=== PATIENT | female | born 1965 ===

== ENCOUNTER 2016-06-09 22:00 | Emergency (ER) | payer MEDICAID ==
[2016-06-09 22:00] VITALS: BMI 26.6
[2016-06-09 22:08] VITALS: BP 142/94; PULSE 77; RESP 18; TEMP 97.5; O2SAT 100
--- NOTE | 2016-06-09 23:08 | C.PDOC ---
History Of Present Illness 50 y/o female presents to ED with complaint of upper back pain radiating to her neck area. Patient was seen in the ER for similar complaints 1 month ago. She notes that she had a massage and was seen by chiropractor but states pain worsened after massage. She denies trauma, fall, weakness, numbness, or other associated symptoms. Time Seen by Provider: 06/09/16 22:24 Chief Complaint (Nursing): Back Pain History Per: Patient History/Exam Limitations: no limitations Onset/Duration Of Symptoms: Days Current Symptoms Are (Timing): Still Present Quality Of Discomfort: "Pain" Associated Symptoms: denies: Incontinence, New Weakness, New Numbness Recent travel outside of the [place]: No Past Medical History Reviewed: Historical Data, Nursing Documentation, Vital Signs Vital Signs: Last Vital Signs Temp 97.5 F L 06/09/16 22:03 Pulse 77 06/09/16 22:03 Resp 18 06/09/16 22:03 BP 142/94 H 06/09/16 22:03 Pulse Ox 100 06/10/16 00:08 - Medical History PMH: Anxiety, Gastritis, Gall Bladder Disease, HTN, Hypothyroidism Surgical History: Cholecystectomy (2 years ago) - [facility] Procedures LAPAROSCOPIC CHOLECYSTECTOMY (03/20/14) Family History: States: Unknown Family Hx - Social History Hx Tobacco Use: No Hx Alcohol Use: Yes Hx Substance Use: No - Immunization History Hx Tetanus Toxoid Vaccination: No Hx Influenza Vaccination: Yes Hx Pneumococcal Vaccination: No Review Of Systems Except As Marked, All Systems Reviewed And Found Negative. Constitutional: Negative for: Fever, Chills Gastrointestinal: Negative for: Nausea, Vomiting Musculoskeletal: Positive for: Neck Pain, Back Pain Skin: Negative for: Rash Neurological: Negative for: Weakness, Numbness Physical Exam - Physical Exam Appears: Non-toxic, No Acute Distress Skin: Normal Color, Warm, Dry Head: Atraumatic, Normacephalic Neck: No Midline Cervical Tenderness, Paracervical Tenderness (mild, bilateral) , No Step Off Deformity, Supple Chest: Symmetrical Cardiovascular: Rhythm Regular Respiratory: Normal Breath Sounds, No Rales, No Rhonchi, No Wheezing Gastrointestinal/Abdominal: Soft, No Tenderness Back: No Vertebral Tenderness, Paraspinal Tenderness (bilateral scapular pain) Extremity: Normal ROM, Capillary Refill (< 2 sec.) Neurological/Psych: Oriented x3, Normal Speech, Normal Cognition, Normal Motor, Normal Sensation ED Course And Treatment O2 Sat by Pulse Oximetry: 100 (RA) Pulse Ox Interpretation: Normal Progress Note: Treated with Toradol and Valium. On reassessment, patient is in no acute distress, with improvement of back pain. Patient has no bony tenderness , extremity numbness or weakness, or abdominal pain. Patient is ambulatory in the emergency department without difficulty. Patient was advised to follow up with PMD/clinic in 1-2 days. Disposition Counseled Patient/Family Regarding: Diagnosis, Need For Followup, Rx Given - Disposition Referrals: Ramos Koo MD [Family Provider] - Disposition: HOME/ ROUTINE Disposition Time: 23:06 Condition: GOOD Additional Instructions: Take meds as prescribed Follow up with PMD Return to ER if worse Prescriptions: Cyclobenzaprine [Cyclobenzaprine HCl] 10 mg PO BID #14 tab Naproxen [Naprosyn] 1 tab PO BID PRN #25 tab PRN Reason: Pain Instructions: Musculoskeletal Pain (ED) - Clinical Impression Clinical Impression: Musculoskeletal back pain, Cervical radiculitis - PA / PIPELINE DISPATCH OPERATOR / Resident Statement MD/DO has reviewed & agrees with the documentation as recorded. - Scribe Statement The provider has reviewed the documentation as recorded by the Mikaela Lewis All medical record entries made by the Mikaela were at my direction and personally dictated by me. I have reviewed the chart and agree that the record accurately reflects my personal performance of the history, physical exam, medical decision making, and the department course for this patient. I have also personally directed, reviewed, and agree with the discharge instructions and disposition.
== END 2016-06-09 23:15 | disposition home or self-care (01) ==
LOC: C.ER 22:00
DX: M54.12 Radiculopathy, cervical region (principal); M54.89 Other dorsalgia
CPT/HCPCS: 96372; 99283; J1885

== ENCOUNTER 2016-11-08 10:16 | Emergency (ER) | payer MEDICAID ==
[2016-11-08 10:17] VITALS: BMI 26.6
[2016-11-08 10:21] VITALS: RESP 18; TEMP 98.3
--- NOTE | 2016-11-08 10:59 | C.PDOC ---
History Of Present Illness 11/08/2016 Elaine Garcia is a 51 y/o female, whose past medical history includes HTN and hyperthyroidism, presents to the ED complaining of a sore throat for the past 4 days. Patient reports she has large amount of green mucous discharge, cough, and shortness of breath. Patient notes taking medication for her symptoms but there is no significant relief. Patient denies chest pain, headache, fever, chills, nausea, vomiting, diarrhea, abdominal pain, dizziness or other complaints. Time Seen by Provider: 11/08/16 10:25 Chief Complaint (Nursing): ENT Problem History Per: Patient History/Exam Limitations: None Onset/Duration Of Symptoms: Days (4 days) Current Symptoms Are (Timing): Still Present Quality (Mouth/Throat): Swelling, Other (green mucous discharge ) Symptoms Have Been: Continuous Past Medical History Reviewed: Historical Data, Nursing Documentation, Vital Signs Vital Signs: Last Vital Signs Temp 98.3 F 11/08/16 10:21 Pulse 77 11/08/16 10:21 Resp 18 11/08/16 10:21 BP 116/83 11/08/16 10:21 Pulse Ox 100 11/08/16 11:05 - Medical History PMH: Anxiety, Gastritis, Gall Bladder Disease, HTN, Hypothyroidism Denies: HIV, Chronic Kidney Disease Surgical History: Cholecystectomy (2 years ago) - [facility] Procedures LAPAROSCOPIC CHOLECYSTECTOMY (03/20/14) Family History: States: Unknown Family Hx Denies: [place], CAD - Social History Hx Tobacco Use: No Hx Alcohol Use: Yes Hx Substance Use: No - Immunization History Hx Tetanus Toxoid Vaccination: No Hx Influenza Vaccination: Yes Hx Pneumococcal Vaccination: No Review Of Systems Constitutional: Negative for: Fever ENT: Positive for: Throat Pain, Throat Swelling Cardiovascular: Negative for: Chest Pain Respiratory: Positive for: Cough, Shortness of Breath, Sputum Gastrointestinal: Negative for: Vomiting, Abdominal Pain Genitourinary: Negative for: Dysuria, Frequency Neurological: Negative for: Headache Physical Exam - Physical Exam Additional Physical Exam Comments: 11/08/2016 Constitutional: No acute distress. Head: Normocephalic. Atraumatic. Eyes: PERRL. ENT: Moist mucous membranes. No erythema. Neck: Supple. Cardiovascular: Regular rate. Radial pulses 2+ bilaterally. Chest: No tenderness. Respiratory: Clear to auscultation bilaterally. GI: Soft. Nontender. Nondistended. Back: No CVA tenderness. Musculoskeletal: No tenderness or swelling of extremities. Skin: No rash. Neurologic: Alert, no focal deficit. ED Course And Treatment O2 Sat by Pulse Oximetry: 100 (air room) Pulse Ox Interpretation: Normal Medical Decision Making Medical Decision Makin11/08/2016 Impression: 51 y/o female with sore throat for the past 4 days. Plan: -- Chest X-ray -- Reassess and disposition CXR shows no infiltrate, consolidation, pneumothorax, pleural effusion. Patient has PMD, instructed to follow up with them, return to ED for fever, dyspnea, inability to take PO. Disposition - Disposition Referrals: Ramos Koo MD [Staff Provider] - Disposition: HOME/ ROUTINE Disposition Time: 11:37 Condition: STABLE Additional Instructions: Your chest X-ray is normal and does not show any pneumonia. Please follow up with your primary doctor. Continue to take your over the counter medications and you may take the Magic Mouthwash with you to gargle and spit out as needed. Instructions: Upper Respiratory Infection (ED) Forms: [facility] (Arabic) - Clinical Impression Clinical Impression: URI (upper respiratory infection) - Scribe Statement The provider has reviewed the documentation as recorded by the Scribe 11/08/2016 Scribe Attestation: Meme Garrido MD Scribe Attestation: All medical record entries made by the Scribe were at my direction and personally dictated by me. I have reviewed the chart and agree that the record accurately reflects my personal performance of the history, physical exam, medical decision making, and the department course for this patient. I have also personally directed, reviewed, and agree with the discharge instructions and disposition.
[2016-11-08] MEDS ORDERED: Mag&Al/Simet/Diphen/Lido 237 ML KIT PO STA (11:25)
[2016-11-08 12:05] VITALS: BP 124/72; PULSE 89; O2SAT 98
--- NOTE | 2016-11-08 12:15 | RAD ---
HISTORY: cough COMPARISON: Chest radiographs 06/16/2015 TECHNIQUE: Chest PA and lateral FINDINGS: LUNGS: No active pulmonary disease. PLEURA: No significant pleural effusion identified. No pneumothorax apparent. CARDIOVASCULAR: Normal. OSSEOUS STRUCTURES: No significant abnormalities. VISUALIZED UPPER ABDOMEN: Normal. OTHER FINDINGS: None. IMPRESSION: No acute cardiopulmonary disease or significant interval change.
== END 2016-11-08 12:05 | disposition home or self-care (01) ==
LOC: C.ER 10:16
DX: J06.9 Acute upper respiratory infection, unspecified (principal)

== ENCOUNTER 2016-11-10 23:35 | Emergency (ER) | payer MEDICAID ==
[2016-11-10 23:36] VITALS: BMI 26.6
[2016-11-10 23:52] VITALS: BP 110/75; PULSE 80; RESP 20; TEMP 98.3; O2SAT 99
[2016-11-11] MEDS ORDERED: Promethazine/Cod 6.25mg-10mg/5ml Syr UD PO STA (00:19)
[2016-11-11] MEDS ORDERED: Promethazine/Cod 6.25mg-10mg/5ml Syr UD ONE (00:22)
[2016-11-11] MEDS ORDERED: Aluminum Hydroxide/Magnesium Hydroxide Susp (30 mL) PO STA (00:41)
[2016-11-11] MEDS ORDERED: Aluminum Hydroxide/Magnesium Hydroxide Susp (30 mL) ONE (00:43)
--- NOTE | 2016-11-11 01:59 | C.PDOC ---
History Of Present Illness 51 y/o female c/o cough with green sputum and SOB x1 week. Patient reports no improvements with OTC meds. Patient was here in the ER a few days prior for similar symptoms with a normal CXR. Patient states that the symptoms has persisted which prompted the visit today. Denies fever, chills, palpitations, diaphoresis, light headedness, recent travel or sick contact. Time Seen by Provider: 11/11/16 00:04 Chief Complaint (Nursing): Cough, Cold, Congestion History Per: Patient History/Exam Limitations: no limitations Onset/Duration Of Symptoms: Days (1 week) Current Symptoms Are (Timing): Still Present Sick Contacts (Context): None Associated Symptoms: denies: Fever, Chills Ear Symptoms: Bilateral: None Severity: Mild Recent travel outside of the [place]: No Additional History Per: Patient Past Medical History Reviewed: Historical Data, Nursing Documentation, Vital Signs Vital Signs: Last Vital Signs Temp 98.3 F 11/10/16 23:47 Pulse 80 11/10/16 23:47 Resp 20 11/10/16 23:47 BP 110/75 11/10/16 23:47 Pulse Ox 99 11/11/16 02:05 - Medical History PMH: Anxiety, Gastritis, Gall Bladder Disease, HTN, Hypothyroidism Denies: HIV, Chronic Kidney Disease Surgical History: Cholecystectomy (2 years ago) - [facility] Procedures LAPAROSCOPIC CHOLECYSTECTOMY (03/20/14) Family History: States: Unknown Family Hx Denies: [place], CAD - Social History Hx Tobacco Use: No Hx Alcohol Use: Yes Hx Substance Use: No - Immunization History Hx Tetanus Toxoid Vaccination: No Hx Influenza Vaccination: Yes Hx Pneumococcal Vaccination: No Review Of Systems Except As Marked, All Systems Reviewed And Found Negative. Constitutional: Negative for: Fever, Chills, Sweats ENT: Negative for: Ear Pain Cardiovascular: Negative for: Palpitations, Light Headedness Respiratory: Positive for: Cough (With green sputum), Shortness of Breath Physical Exam - Physical Exam Appears: Non-toxic, No Acute Distress Skin: Warm, Dry Head: Atraumatic, Normacephalic Eye(s): bilateral: Normal Inspection Ear(s): Bilateral: Normal Oral Mucosa: Moist Throat: Normal, No Erythema, No Exudate Chest: Symmetrical, No Tenderness Cardiovascular: Rhythm Regular Respiratory: Normal Breath Sounds, No Wheezing Gastrointestinal/Abdominal: Soft, No Tenderness Neurological/Psych: Oriented x3, Normal Speech, Normal Cognition ED Course And Treatment O2 Sat by Pulse Oximetry: 99 (RA) Pulse Ox Interpretation: Normal Progress Note: Impression: 51 y/o female c/o cough with green sputum and SOB x1 week. Plans:Phenergan with Codeine, Prednisone. Patient is in no acute distress and is improving with the cough and SOB. Patient is currenlty afebrile and was instructed to take meds and to follow up with PMD for further evaluation and to return if symptoms worsens. Disposition - Disposition Referrals: Ramos Koo MD [Staff Provider] - Disposition: HOME/ ROUTINE Disposition Time: 12:37 Condition: STABLE Prescriptions: Azithromycin [Zithromax] 250 mg PO DAILY #6 tab Benzonatate [Tessalon Perles] 100 mg PO TID #20 sgl Cetirizine HCl [Zyrtec] 10 mg PO DAILY #20 capsule predniSONE [Prednisone] 40 mg PO DAILY #10 tab Instructions: Acute Bronchitis (ED) Forms: [employer] (Russian) - Clinical Impression Clinical Impression: Bronchitis - Scribe Statement The provider has reviewed the documentation as recorded by the Scribe Vishnu mckeon All medical record entries made by the Scribe were at my direction and personally dictated by me. I have reviewed the chart and agree that the record accurately reflects my personal performance of the history, physical exam, medical decision making, and the department course for this patient. I have also personally directed, reviewed, and agree with the discharge instructions and disposition.
== END 2016-11-11 00:48 | disposition home or self-care (01) ==
LOC: C.ER 23:35 → SUPCPDRO 23:35 → C.ER 11-11 00:48
DX: J40 Bronchitis, not specified as acute or chronic (principal)

== ENCOUNTER 2017-04-18 13:48 | Emergency (ER) | payer MEDICAID ==
[2017-04-18 13:57] VITALS: BMI 28.0
[2017-04-18 13:58] VITALS: BP 125/82; PULSE 110; RESP 20; TEMP 98.8; O2SAT 99
--- NOTE | 2017-04-18 16:12 | C.PDOC ---
History Of Present Illness 51 year old female presents to the emergency department complaining of body aches, dry cough, and a subjective fever since yesterday. Denies any vomiting, chest pain, or shortness of breath. Patient is tolerating per os. Has not received the flu shot and has positive sick contacts. PMD: Dr. Praveen Koo Chief Complaint (Nursing): Flu-like Symptoms History Per: Patient History/Exam Limitations: no limitations Onset/Duration Of Symptoms: Days (x2) Current Symptoms Are (Timing): Still Present Past Medical History Reviewed: Historical Data, Nursing Documentation, Vital Signs Vital Signs: Last Vital Signs Temp 98.8 F 04/18/17 13:57 Pulse 110 H 04/18/17 13:57 Resp 20 04/18/17 13:57 BP 125/82 04/18/17 13:57 Pulse Ox 99 04/18/17 16:13 - Medical History PMH: Anxiety, Gastritis, Gall Bladder Disease, HTN, Hypothyroidism Denies: HIV, Chronic Kidney Disease Surgical History: Cholecystectomy - [facility] Procedures LAPAROSCOPIC CHOLECYSTECTOMY (03/20/14) Family History: States: Unknown Family Hx Denies: [place], CAD - Social History Hx Tobacco Use: No Hx Alcohol Use: Yes Hx Substance Use: No - Immunization History Hx Tetanus Toxoid Vaccination: No Hx Influenza Vaccination: No Hx Pneumococcal Vaccination: No Review Of Systems Except As Marked, All Systems Reviewed And Found Negative. Constitutional: Positive for: Fever, Other (Body Aches) Cardiovascular: Negative for: Chest Pain Respiratory: Positive for: Cough. Negative for: Shortness of Breath, Sputum Gastrointestinal: Negative for: Vomiting, Diarrhea Physical Exam - Physical Exam Appears: Well, Non-toxic, No Acute Distress Skin: Normal Color, Warm, Dry Head: Atraumatic, Normacephalic Eye(s): bilateral: Normal Inspection, PERRL, EOMI Nose: Normal Throat: Normal Neck: Normal Cardiovascular: Rhythm Regular, No Murmur Respiratory: Normal Breath Sounds, No Accessory Muscle Use, No Wheezing Gastrointestinal/Abdominal: Normal Exam, Soft, No Tenderness, No Distention Neurological/Psych: Oriented x3 ED Course And Treatment O2 Sat by Pulse Oximetry: 99 (RA) Pulse Ox Interpretation: Normal Medical Decision Making Medical Decision Making: Discharge Time: 14:47 Upon reevaluation, patient is feeling better and was discharged home. Patient is instructed to follow up with primary care physician if symptoms worsen Disposition - Disposition Referrals: Latonya Ndiaye Dianamaikol, [Non-Staff] - Disposition: HOME/ ROUTINE Disposition Time: 14:20 Condition: GOOD Additional Instructions: Thank you for letting us take care of you today. The emergency medical care you received today was directed at your acute symptoms. If you were prescribed any medication, please fill it and take as directed. It may take several days for your symptoms to resolve. Return to the Emergency Department if your symptoms worsen, do not improve, or if you have any other problems. Please contact your doctor or call one of the physicians/clinics you have been referred to that are listed on the Patient Visit Information form that is included in your discharge packet. Bring any paperwork you were given at discharge with you along with any medications you are taking to your follow up visit. Our treatment cannot replace ongoing medical care by a primary care provider (PCP) outside of the emergency department. Thank you for allowing the [facility] team to be part of your care today. Follow up with your doctor in 2-3 days for re-evaluation and further management. Prescriptions: Oseltamivir Phosphate [Tamiflu] 75 mg PO BID #10 capsule Instructions: Viral Syndrome (ED) Forms: [facility] ? [employer] (Chinese) - Clinical Impression Clinical Impression: Influenza-like illness - Scribe Statement The provider has reviewed the documentation as recorded by the Scribe Vandana Sales All medical record entries made by the Scribe were at my direction and personally dictated by me. I have reviewed the chart and agree that the record accurately reflects my personal performance of the history, physical exam, medical decision making, and the department course for this patient. I have also personally directed, reviewed, and agree with the discharge instructions and disposition.
== END 2017-04-18 14:47 | disposition home or self-care (01) ==
LOC: C.ER 13:48
DX: J11.1 Influenza due to unidentified influenza virus with other respiratory manifestations (principal)

== ENCOUNTER 2017-09-17 08:35 | Emergency (ER) | payer MEDICAID ==
[2017-09-17 08:40] VITALS: BMI 29.2
[2017-09-17 08:49] VITALS: BP 115/81; PULSE 72; RESP 20; TEMP 97.7
--- NOTE | 2017-09-17 09:01 | C.PDOC ---
History Of Present Illness 51 year old female presents to ED with complaints of 3 day history of left sided neck and upper back pain, radiates to shoulder. As per patient pain is aching and worsened with movement or strenuous use. Patient has not taken any medications for pain and denies chest pain, SOB, numbness or weakness. Time Seen by Provider: 09/17/17 08:47 Chief Complaint (Nursing): Back Pain History Per: Patient History/Exam Limitations: no limitations Onset/Duration Of Symptoms: Days Current Symptoms Are (Timing): Still Present Quality Of Discomfort: "Pain" Past Medical History Reviewed: Historical Data, Nursing Documentation, Vital Signs Vital Signs: Last Vital Signs Temp 97.7 F 09/17/17 08:46 Pulse 72 09/17/17 08:46 Resp 20 09/17/17 08:46 BP 115/81 09/17/17 08:46 Pulse Ox 98 09/17/17 09:39 - Medical History PMH: Anxiety, Gastritis, Gall Bladder Disease, HTN, Hypothyroidism Surgical History: Cholecystectomy - [facility] Procedures LAPAROSCOPIC CHOLECYSTECTOMY (03/20/14) Family History: States: No Known Family Hx - Social History Hx Tobacco Use: No Hx Alcohol Use: Yes Hx Substance Use: No - Immunization History Hx Tetanus Toxoid Vaccination: No Hx Influenza Vaccination: No Hx Pneumococcal Vaccination: No Review Of Systems Constitutional: Negative for: Fever, Chills Gastrointestinal: Negative for: Nausea, Vomiting, Abdominal Pain Genitourinary: Negative for: Dysuria, Hematuria Musculoskeletal: Positive for: Back Pain Skin: Negative for: Rash Neurological: Negative for: Weakness, Numbness Physical Exam - Physical Exam Appears: Non-toxic, No Acute Distress Skin: Warm, Dry, No Rash Head: Atraumatic, Normacephalic Eye(s): bilateral: Normal Inspection Oral Mucosa: Moist Neck: Normal ROM, No Midline Cervical Tenderness, Paracervical Tenderness, Step Off Deformity Cardiovascular: Rhythm Regular Respiratory: Normal Breath Sounds, No Rales, No Rhonchi, No Wheezing Gastrointestinal/Abdominal: Soft, No Tenderness, No Guarding, No Rebound Back: No CVA Tenderness, No Paraspinal Tenderness, Other (Trapezius muscle tenderness. Left SCM muscle tenderness) Extremity: Bilateral: Atraumatic, Normal ROM Pulses: Left Radial: Normal Neurological/Psych: Oriented x3, Normal Speech, Normal Motor, Normal Sensation Gait: Steady ED Course And Treatment O2 Sat by Pulse Oximetry: 98 (RA) Pulse Ox Interpretation: Normal Medical Decision Making Medical Decision Making: Impression: Muscle pain Plan: * Motrin * Flexeril Re-Eval: Patient resting comfortably, no longer having neck pain. She has no fever, no bony tenderness, no numbness, no weakness, no stiffness. Patient is ambulatory in the emergency department with no discomfort. Patient advised to follow up with their physician in 1-2 days. Disposition Counseled Patient/Family Regarding: Diagnosis, Need For Followup, Rx Given - Disposition Referrals: Ramos Koo MD [Staff Provider] - Disposition: HOME/ ROUTINE Disposition Time: 09:44 Condition: IMPROVED Additional Instructions: Please apply heat to area of pain Take Tylenol or Ibuprofen as needed for pain Take Flexeril as needed for muscle pain, may cause drowsiness Follow up with your primary medical doctor or clinic in 2-5 days for further evaluation. Return to the emergency department at any time if symptoms persist or worsen. Prescriptions: Cyclobenzaprine [Cyclobenzaprine HCl] 10 mg PO TID #21 tab Ibuprofen [Motrin] 600 mg PO Q8 #30 tab Instructions: Cervical Muscle Strain (DC) Forms: [employer] (Marshallese) - POA Present On Arrival: None - Clinical Impression Clinical Impression: Neck muscle strain - PA / SMELTER LINER / Resident Statement MD/DO has reviewed & agrees with the documentation as recorded. - Scribe Statement The provider has reviewed the documentation as recorded by the Alissaibjenaro Gutierrez All medical record entries made by the Mikaela were at my direction and personally dictated by me. I have reviewed the chart and agree that the record accurately reflects my personal performance of the history, physical exam, medical decision making, and the department course for this patient. I have also personally directed, reviewed, and agree with the discharge instructions and disposition.
[2017-09-17 10:07] VITALS: O2SAT 98
== END 2017-09-17 09:48 | disposition home or self-care (01) ==
LOC: C.ER 08:35
DX: S16.1XXA Strain of muscle, fascia and tendon at neck level, initial encounter (principal); X58.XXXA Exposure to other specified factors, initial encounter

== ENCOUNTER 2017-10-23 19:52 | Emergency (ER) | payer MEDICAID ==
[2017-10-23 19:53] VITALS: BMI 29.2
[2017-10-23 20:01] VITALS: BP 118/82; PULSE 80; RESP 20; TEMP 97.6; O2SAT 100
--- NOTE | 2017-10-23 20:13 | C.PDOC ---
History Of Present Illness 51 y/o female with htn and thyroid problems presents with stye on left upper lid for several months. pt seen by eye doctor on Thur and recommended to continue with warm compresses with f/u in 2-3 weeks. pt sts stye coming to a head. not taking anything for pain. no fever. Time Seen by Provider: 10/23/17 20:05 Chief Complaint (Nursing): Eye Problem History/Exam Limitations: no limitations Onset/Duration Of Symptoms: Days Current Symptoms Are (Timing): Worse Injury To Eye?: No Severity: Moderate Quality: "Pain" Associated Symptoms: Swelling (left upper lid). denies: Decreased Vision, FB Sensation Past Medical History Reviewed: Historical Data, Nursing Documentation, Vital Signs Vital Signs: Last Vital Signs Temp 97.6 F 10/23/17 19:58 Pulse 80 10/23/17 19:58 Resp 20 10/23/17 19:58 BP 118/82 10/23/17 19:58 Pulse Ox 100 10/23/17 20:23 - Medical History PMH: Anxiety, Gastritis, Gall Bladder Disease, HTN, Hypothyroidism Denies: HIV, Chronic Kidney Disease Surgical History: Cholecystectomy - [facility] Procedures LAPAROSCOPIC CHOLECYSTECTOMY (03/20/14) Family History: States: Unknown Family Hx Denies: [place], CAD - Social History Hx Tobacco Use: No Hx Alcohol Use: Yes Hx Substance Use: No - Immunization History Hx Tetanus Toxoid Vaccination: No Hx Influenza Vaccination: No Hx Pneumococcal Vaccination: No Review Of Systems Constitutional: Negative for: Fever Eyes: Positive for: Pain, Eyelid Inflammation, Redness. Negative for: Vision Change Physical Exam - Physical Exam Appears: Non-toxic, Other (uncomfortable) Skin: Warm, Dry Head: Atraumatic, Normacephalic Eye(s): bilateral: PERRL, EOMI, right: Normal Inspection, left: Eyelid Inflammation (mild erythema to left upper lid with stye with head visible at base of lid/lash. ) Neurological/Psych: Oriented x3, Normal Speech, Normal Cognition ED Course And Treatment O2 Sat by Pulse Oximetry: 100 Medical Decision Making Medical Decision Making: pt with stye coming to a head; advised to continue warm compresses, tylenol or motrin for pain and antibiotics f/u eye doctor as planned. . addendum; pt shows me at end of visit a tube of tobradex given to her by eye doctor at visit 2 days ago; pt advised to continue use of this medication. Disposition Counseled Patient/Family Regarding: Diagnosis, Need For Followup, Rx Given - Disposition Disposition: HOME/ ROUTINE Disposition Time: 20:16 Condition: GOOD Additional Instructions: Please continue with warm compresses to left upper lid. Take antibiotics as prescribed. Tylenol or Motrin for pain. Follow up with your eye doctor as scheduled. Return to ER for any worsening symptoms. Prescriptions: Cephalexin [cephalexin] 500 mg PO Q6 #20 cap Instructions: Raffi (Hordeolum) Forms: [facility] (Hungarian), General Discharge Instructions - Clinical Impression Clinical Impression: Hordeolum externum left upper eyelid
== END 2017-10-23 20:28 | disposition home or self-care (01) ==
LOC: C.ER 19:52
DX: H00.014 Hordeolum externum left upper eyelid (principal); I10 Essential (primary) hypertension; E03.9 Hypothyroidism, unspecified

== ENCOUNTER 2018-01-10 20:18 | Emergency (ER) | payer MEDICAID ==
[2018-01-10 20:18] VITALS: BMI 29.2
[2018-01-10 20:33] VITALS: O2SAT 100
--- NOTE | 2018-01-10 20:36 | C.PDOC ---
History Of Present Illness Patient presents to the ER after having an episode of dizziness associated with some palpitations [employer]. Patient states she was working with a customer at work when the symptoms began. She reports feeling anxious at this time. Denies chest pain, vision change, or tinnitus. Time Seen by Provider: 01/10/18 20:35 Chief Complaint (Nursing): Dizziness/Lightheaded History Per: Patient History/Exam Limitations: no limitations Onset/Duration Of Symptoms: Hrs Current Symptoms Are (Timing): Still Present Severity: Moderate Pain Scale Rating Of: 4 Recent travel outside of the [place]: No Past Medical History Reviewed: Historical Data, Nursing Documentation, Vital Signs Vital Signs: Last Vital Signs Temp 97.8 F 01/10/18 20:28 Pulse 85 01/10/18 20:28 Resp 15 01/10/18 20:28 BP 147/71 01/10/18 20:28 Pulse Ox 100 01/10/18 20:28 - Medical History PMH: Anxiety, Gastritis, Gall Bladder Disease, HTN, Hypothyroidism Denies: HIV, Chronic Kidney Disease Surgical History: Cholecystectomy - [facility] Procedures LAPAROSCOPIC CHOLECYSTECTOMY (03/20/14) Family History: States: No Known Family Hx - Social History Hx Tobacco Use: No Hx Alcohol Use: No Hx Substance Use: No - Immunization History Hx Tetanus Toxoid Vaccination: No Hx Influenza Vaccination: No Hx Pneumococcal Vaccination: No Review Of Systems Constitutional: Negative for: Fever, Chills Eyes: Negative for: Vision Change ENT: Negative for: Other (Tinnitus) Cardiovascular: Positive for: Palpitations. Negative for: Chest Pain Gastrointestinal: Negative for: Nausea, Vomiting Neurological: Positive for: Dizziness Psych: Positive for: Anxiety Physical Exam - Physical Exam Appears: Non-toxic Skin: Warm, Dry Head: Normacephalic Eye(s): bilateral: Normal Inspection, PERRL, EOMI Oral Mucosa: Moist Neck: Trachea Midline, Supple Chest: Symmetrical, No Tenderness Cardiovascular: Rhythm Regular Respiratory: No Rales, No Rhonchi, No Wheezing Gastrointestinal/Abdominal: Soft, No Tenderness Neurological/Psych: Oriented x3 ED Course And Treatment - Laboratory Results Result Diagrams: 01/10/18 20:48 01/10/18 20:48 ECG: Interpreted By Me, Viewed By Me ECG Rhythm: Sinus Rhythm (83), Nonspecific Changes O2 Sat by Pulse Oximetry: 100 Pulse Ox Interpretation: Normal - Radiology CXR: Interpreted by Me, Viewed By Me CXR Interpretation: No: Infiltrates, Fracture, Pnemothorax Progress Note: EKG, blood work, CXR, and urinalysis ordered. Reevaluation Time: 22:08 Reassessment Condition: Improved Disposition Counseled Patient/Family Regarding: Studies Performed, Diagnosis, Need For Followup, Rx Given - Disposition Referrals: Ramos Koo MD [Staff Provider] - Disposition: HOME/ ROUTINE Disposition Time: 21:08 Condition: FAIR Additional Instructions: Please return if symptom srecur Prescriptions: Meclizine [Antivert] 25 mg PO TID #15 tab Instructions: Vertigo (a Type of Dizziness) (DC) Forms: [employer] (Namibian) - Clinical Impression Clinical Impression: Dizziness, Anxiety - Scribe Statement The provider has reviewed the documentation as recorded by the Scribe Edmond Elias All medical record entries made by the Scribe were at my direction and persona lly dictated by me. I have reviewed the chart and agree that the record accurately reflects my personal performance of the history, physical exam, medical decision making, and the department course for this patient. I have also personally directed, reviewed, and agree with the discharge instructions and disposition.
[2018-01-10 20:58] LABS: BASO % 0.5 % (0.0-2.0); EOS # 0.2 K/uL (0.0-0.7); EOS % 2.5 % (0.0-4.0); HEMOGLOBIN 13.6 g/dL (11.0-16.0); LYMPH # 3.2 K/uL (1.0-4.3); LYMPH % 43.7 % (20.0-40.0); MEAN CELL VOLUME 92.6 fL (81.0-99.0); MEAN CORPUSCULAR HEMOGLOBIN 32.2 pg (27.0-31.0); MEAN CORPUSCULAR HGB CONC 34.8 g/dL (33.0-37.0); MEAN PLATELET VOLUME 8.7 fL (7.2-11.7); MONO # 0.5 K/uL (0.0-0.8); MONO % 6.2 % (0.0-10.0); NEUT # 3.5 K/uL (1.8-7.0); NEUT % 47.1 % (50.0-75.0); NRBC % 0.1 % (0.0-2.0); RBC 4.21 Mil/uL (3.80-5.20); RED CELL DISTRIBUTION WIDTH 12.8 % (11.5-14.5); WHITE BLOOD COUNT 7.4 K/uL (4.8-10.8)
[2018-01-10 21:13] LABS: PROTHROMBIN TIME 10.4 SECONDS (9.7-12.2)
[2018-01-10 21:17] LABS: SQUAMOUS EPITHIAL < 1 /hpf (0-5); URINE BILIRUBIN NEGATIVE (NEGATIVE); URINE CLARITY Clear (Clear); URINE COLOR Straw (YELLOW); URINE GLUCOSE (UA) NORMAL (Normal); URINE LEUKOCYTE ESTERASE TRACE Leu/uL (Negative); URINE PROTEIN NEGATIVE (NEGATIVE); URINE UROBILINOGEN NORMAL mg/dL (0.2-1.0)
[2018-01-10 21:26] LABS: HCG,QUALITATIVE URINE NEGATIVE (NEGATIVE)
[2018-01-10 21:31] LABS: ALB/GLOB RATIO 1.6 (1.0-2.1); ALBUMIN 4.7 g/dL (3.5-5.0); ALT/SGPT 30 U/L (9-52); AST/SGOT 34 U/L (14-36); BLOOD UREA NITROGEN 13 mg/dL (7-17); CALCIUM 9.8 mg/dl (8.6-10.4); GFR NON-AFRICAN AMERICAN > 60
[2018-01-10 21:43] LABS: URINE BLOOD TRACE (NEGATIVE)
[2018-01-10 21:53] VITALS: BP 113/64; PULSE 80; RESP 14
[2018-01-10 22:10] VITALS: TEMP 97.7
--- NOTE | 2018-01-11 07:51 | RAD ---
Date of service: 01/10/2018 PROCEDURE: CHEST RADIOGRAPH, 1 VIEW HISTORY: Palpations COMPARISON: 11/08/2016 FINDINGS: LUNGS: Clear. PLEURA: No pneumothorax or pleural fluid seen. CARDIOVASCULAR: Normal. OSSEOUS STRUCTURES: No significant abnormalities. VISUALIZED UPPER ABDOMEN: Normal. OTHER FINDINGS: None. IMPRESSION: No active disease.No interval pathology noted.
--- NOTE | 2018-01-11 12:22 | CARD ---
APPROVED REPORT Date of service: 01/10/2018 EKG Measurement Heart [id number] <Conclusion> Normal sinus rhythm Normal ECG
== END 2018-01-10 22:16 | disposition home or self-care (01) ==
LOC: C.ER 20:18
DX: R42 Dizziness and giddiness (principal); F41.9 Anxiety disorder, unspecified